=== PATIENT | male | born 1930 | race Hispanic/Latino ===

== ENCOUNTER → 2018-05-29 | Day surgery (SDC) | payer MEDICARE, OTHER ==
[~2018-05-29] MED LIST: ACETAMINOPHEN325 M1 PO; AMLODIPINE BESY10 MG PO; ASCORBIC ACID500 MG PO; ASPIR 8181 MG; ASPIR 8181 MG PO; ATARAX 25MG25 MG PO; ATORVASTATIN CA20 MG PO; BISCOLAX10 MG RC; BUMETANIDE1 MG PO; CALCIUM CARBON500 MG PO; FINASTERIDE5 MG PO; FISH OIL PO; FLOMAX0.4 MG PO; HUMALOG MI100 UNIT/1 SQ; HUMALOG100 UNIT/1; HYDRALAZINE HCL25 MG PO; HYDROCODONE PO; HYDROXYZINE HCL25 MG PO; IRON325 M1 PO; KEFLEX500 MG PO; LEVOTHYROXINE75 MCG PO; LISINOPRIL10 MG PO; LOPRESSOR25 MG PO; LORAZEPAM PO; LORAZEPAM0.5 MG PO; METOPROLOL TART50 MG PO; MIDAZOLAM HCL 2 MG/2 ML VIAL ONE; NIFEDIPINE ER30 M1 PO; NITROSTAT0.4 MG SL; OMEGA-31000 MG PO; OR PHACO EYE KIT ONE; PREOP PHACO EYE KIT ONE; SODIUM CHLORIDE 0.9% 500ML 500 ML ONE; TYLENOL WITH C1 EACH PO; ULTRAM 50MG50 MG PO; VIT D3 PO; VIT E PO; VITAMIN C PO; VITAMIN D PO; VITAMIN D1000 UNIT PO; VITAMIN E PO; XARELTO10 MG PO; Z.0.ACTOS30 MG PO; Z.0.ALLOPURINOL300 M PO; Z.0.AMLODIPINE BESY1 PO; Z.0.DIOVAN HCT 3201 PO; Z.0.GABAPENTIN300 MG PO; Z.0.LEVOTHYROXINE75 PO; Z.0.NITROSTAT0.4 MG SL; Z.0.TAMSULOSIN HCL0. PO; [UNRECOGNIZED DRUG - OTHER] PO
[2018-05-29 10:05] LABS: BASOPHILS # (AUTO) 0.1 (0.0-0.1); BASOPHILS % 0.6 % (0.0-1.0); EOSINOPHILS # (AUTO) 0.7 (0.0-0.4); EOSINOPHILS % 8.6 % (0.0-6.0); HEMATOCRIT 41.4 % (38.2-49.6); HEMOGLOBIN 12.8 g/dL (14.0-18.0); LYMPHOCYTES # (AUTO) 1.3 (1.0-3.2); LYMPHOCYTES % 15.6 % (18.0-39.1); MEAN CORPUSCULAR HEMOGLOBIN 27.4 pg (28-32); MEAN CORPUSCULAR HGB CONC 30.9 g/dL (31-35); MEAN CORPUSCULAR VOLUME 88.7 fL (81-99); MONOCYTES # (AUTO) 1.1 (0.2-0.8); MONOCYTES % 12.9 % (4.4-11.3); NEUTROPHILS # (AUTO) 5.2 (2.1-6.9); NEUTROPHILS % 61.9 % (38.7-80.0); PLATELET COUNT 174 x10e3/uL (140-360); RED BLOOD COUNT 4.67 x10e6/uL (4.3-5.7); RED CELL DISTRIBUTION WIDTH 17.2 % (11.7-14.4)
[2018-05-29 11:31] VITALS: BP 162/61
--- NOTE | 2018-06-07 20:18 | Operative Report ---
DATE OF PROCEDURE: May 29, 2018 PREOPERATIVE DIAGNOSIS: Dense cataract to the left eye with poor dilation. POSTOPERATIVE DIAGNOSIS: Dense cataract to the left eye with poor dilation. PROCEDURE: Complicated phacoemulsification with posterior chamber intraocular lens, left eye. ANESTHESIA: MAC. COMPLICATIONS: None. LENS: SN60WF, 21.5-diopter lens. PROCEDURE IN DETAIL: The patient was taken to the operating room where he had tetracaine 0.5% drops placed in the eye. The patient's eye was then prepped and draped in the usual sterile ophthalmic way. A lid speculum was placed in the eye. A side-port incision was made, and 0.2 mL of 1% lidocaine preservative free was injected in the anterior chamber. An air bubble was placed in the anterior chamber, and trypan blue dye was injected in the anterior chamber to stay in the capsule secondary to a dense cataract and poor red reflex. BSS solution irrigated the rest out. Viscoelastic was placed in the anterior chamber. A keratome was used to make a temporal clear cornea incision. The Malyugin ring was used to dilate the pupil secondary to poor dilation. A cystotome and Utrata forceps were used to create an anterior capsulorrhexis without any complications. Hydrodissection was then performed. A phacoemulsification probe was placed in the eye, and the nucleus was phacoemulsified using the [id number] technique. Irrigation and aspiration handpiece was used to remove any residual cortical material. Viscoelastic was placed in the capsular bag. An Deondre SN60WF lens was placed into the bag without any complications. The irrigation and aspiration handpiece was used to remove any residual viscoelastic material from the eye. The Malyugin ring was then removed. Miostat was injected in the anterior chamber. The wound was checked to make sure there was no evidence of leakage. Two drops of Vigamox were placed in the eye. Along with this, he had Maxitrol ointment, a patch and Samuel shield placed in the eye. The patient tolerated the procedure well and will be taken to the recovery room in good condition. The patient will be seen in my office tomorrow. Job#: [id number]
== END | disposition home or self-care (01) ==
LOC: OR 08:01
PROVIDERS: ATTEND Ophthalmology
DX: H25.12 Age-related nuclear cataract, left eye (principal); H57.09 Other anomalies of pupillary function; E11.22 Type 2 diabetes mellitus with diabetic chronic kidney disease; I13.2 Hypertensive heart and chronic kidney disease with heart failure and with stage 5 chronic kidney disease, or end stage renal disease; N18.9 Chronic kidney disease, unspecified; I50.9 Heart failure, unspecified; I48.91 Unspecified atrial fibrillation; I35.0 Nonrheumatic aortic (valve) stenosis; N18.6 End stage renal disease; N25.81 Secondary hyperparathyroidism of renal origin; D63.1 Anemia in chronic kidney disease; E03.9 Hypothyroidism, unspecified; F41.1 Generalized anxiety disorder; N40.1 Benign prostatic hyperplasia with lower urinary tract symptoms; E78.5 Hyperlipidemia, unspecified; K80.20 Calculus of gallbladder without cholecystitis without obstruction; M47.817 Spondylosis without myelopathy or radiculopathy, lumbosacral region; Z99.2 Dependence on renal dialysis; Z79.82 Long term (current) use of aspirin; Z79.02 Long term (current) use of antithrombotics/antiplatelets; Z79.4 Long term (current) use of insulin; Z95.5 Presence of coronary angioplasty implant and graft; Z95.828 Presence of other vascular implants and grafts
CPT/HCPCS: 36415; 66982; 84132; 85025; J2250; J7040; V2632